=== PATIENT | male | born 1990 | race Hispanic/Latino ===

== ENCOUNTER 2022-08-03 16:12 | Emergency (ER) | payer SELFPAY ==
[2022-08-03] MEDS ORDERED: Tetracaine 0.5% PF 4 ML BOT ONE (16:40)
[2022-08-03] MEDS ORDERED: Fluorescein Opthalmic Strip ONE (16:40)
== END 2022-08-03 17:03 | disposition home or self-care (01) ==
LOC: MADERS 16:12
DX: T15.01XA Foreign body in cornea, right eye, initial encounter (principal); F17.200 Nicotine dependence, unspecified, uncomplicated
CPT/HCPCS: 65220